=== PATIENT | female | born 1965 | race African-American/Black ===

== ENCOUNTER 2022-08-13 11:12 | Emergency (ER) | payer MEDICAID ==
[~2022-08-13] VITALS: Ht 167.6 cm; Wt 65.0 kg
[~2022-08-13 11:12] MED LIST: NO HOME MED; NO MEDICATION
[2022-08-13 11:28] VITALS: BP 128/65
[2022-08-13 13:17] LABS: CHLORIDE 107 mEq/L (98-107)
[2022-08-13 13:27] LABS: BASOPHILS % 0.3 % (0.0-2.0); EOSINOPHILS % 1.6 % (0.0-5.0); HEMATOCRIT. 40.2 % (36.0-48.0); HEMOGLOBIN. 13.2 g/dL (12.0-16.0); LYMPHOCYTES % 40.4 % (20.0-50.0); MEAN CORPUSCULAR HEMOGLOBIN 25.9 pg (28.0-32.0); MONOCYTES % 7.7 % (2.0-8.0); PLATELET 121 x1000/uL (130-400); RED BLOOD CELL COUNT 5.09 mill/uL (4.2-5.4); RED CELL DISTRIBUTION WIDTH 14.5 % (11.6-14.6)
[2022-08-13] MEDS ORDERED: NIRM1TAB PO (13:47)
== END 2022-08-13 14:07 | disposition home or self-care (01) ==
LOC: ER 11:12
DX: U07.1 COVID-19 (principal); F17.210 Nicotine dependence, cigarettes, uncomplicated
CPT/HCPCS: 36415; 80053; 84484; 85025; 87426; 93005; 99284; C9803